=== PATIENT | female | born 1975 | race Caucasian/White ===

== ENCOUNTER 2020-11-16 17:01 | Emergency (ER) | payer OTHER ==
[~2020-11-16] VITALS: Ht 167.6 cm; Wt 68.0 kg
[2020-11-16 17:04] VITALS: BP 156/105
== END 2020-11-16 17:52 | disposition home or self-care (01) ==
LOC: ER 17:01
DX: Z20.3 Contact with and (suspected) exposure to rabies (principal); Z23 Encounter for immunization